=== PATIENT | male | born 1965 | race Caucasian/White ===

== ENCOUNTER 2017-11-10 10:22 | Day surgery (SDC) | payer OTHER ==
[~2017-11-10 10:22] MED LIST: Buffered Lidocaine 0.9% SYRIN* 5 ML/SYR SYRINGE INTRADERM ONE; Bupivacaine 0.25% SDV* 30 ML ONE; Cisatracurium* 2 MG/ML MDV 5 ML ONE; Dexamethasone IV* 4 MG/ML 1 ML (4 MG) ONE; Famotidine IV* 10 MG/ML 2 ML (20 mg) IV ONE; KETAMINE HCL* 50 MG/ML 10 ML VIAL ONE; Ketorolac INJ* 30 MG/ML 1 ML VIAL ONE; Lidocaine 2% PF * 5 ML VIAL ONE; Metoclopramide TAB* 10 MG PO ONE; Midazolam* 1 MG/ML 10 ML VIAL (10 MG) ONE; Ondansetron INJ* 2 MG/ML VIAL ONE; Propofol* 10 MG/ML 20 ML BTL IV PUSH ONE; fentaNYL* 50 MCG/ML 2 ML VIAL (100 MCG VIAL) ONE
[2017-11-10] MEDS ORDERED: Famotidine IV* 10 MG/ML 2 ML (20 mg) ONE (10:28)
[2017-11-10] MEDS ORDERED: Metoclopramide TAB* 10 MG ONE (10:28)
[2017-11-10] MEDS ORDERED: ceFAZolin 2 GM PREMIX (*) 2 GM/50 ML BAG IVPB ONE (10:28)
[2017-11-10] MEDS ORDERED: Buffered Lidocaine 0.9% SYRIN* 5 ML/SYR SYRINGE ONE (10:28)
[2017-11-10] MEDS ORDERED: Bupivacaine 0.25% SDV* 30 ML ONE (10:40)
[2017-11-10] MEDS ORDERED: fentaNYL* 50 MCG/ML 2 ML VIAL (100 MCG VIAL) IV PRN (11:38)
[2017-11-10] MEDS ORDERED: oxyCODONE/Acetamin 5/325 MG* TAB PO PRN ×2 (11:38→12:18)
[2017-11-10] MEDS ORDERED: Naloxone* 0.4 MG/ML 1 ML VIAL IV PRN (11:38)
[2017-11-10] MEDS ORDERED: Ondansetron INJ* 2 MG/ML VIAL IV PRN (11:38)
[2017-11-10] MEDS ORDERED: HYDROmorphone INJ* 1 MG/ML CARPUJECT SYRINGE ONE (12:00)
[2017-11-10 13:08] VITALS: BP 139/80
--- NOTE | 2017-11-25 03:18 | OP ---
CC: Dr. Edwar Pope * DATE OF OPERATION: 11/10/17 - SDS DATE OF : 65 SURGEON: Brooks Castro MD PROGRAMMER OPERATOR NUMERICAL CONTROL: TRANG Roman ANESTHESIA: General anesthesia. PRE-OP DIAGNOSIS: Left inguinal hernia. POST-OP DIAGNOSIS: Left inguinal hernia. OPERATIVE PROCEDURE: Laparoscopic left inguinal hernia repair with mesh. ESTIMATED BLOOD LOSS: Minimal blood loss. SPECIMENS: None. FLUIDS: 1000 cc of lactated Ringer's given as fluid. DRAINS: None. DESCRIPTION OF PROCEDURE: The patient was identified in the preoperative area, he was marked and consent was signed. He was taken back to the operating room and placed on the operating table in the supine position. Preoperative antibiotics were given. Sequential devices were placed on bilateral lower extremities. General anesthesia was induced and the patient's abdomen was prepped and draped in a standard surgical fashion. Time-out was performed. Infraumbilical incision was made. This was deepened down overlying the rectus muscle. The fascia was incised and the rectus pillar was retracted laterally and entry into the preperitoneal plane was made. Blunt dissection was carried out. We then placed a 12-mm trocar into the site and allowed the preperitoneal plane to insufflate to a pressure of 12 mmHg. Scope was placed and additional 5-mm trocars were placed in the lower midline. We cleared off loose areolar tissue in this to make it a working space, we cleared off the pubic symphysis as well as Lon's ligament on both left and right side. A direct hernia was identified. This was bluntly dissected free. We then identified epigastric vessels. These were maintained anteriorly and cleared off Bogros' space laterally. The spermatic structures were then skeletonized. There was no direct sac. We then placed a Bard 3D mesh large size into the preperitoneal space, then allowed it to unfurl, tacked it to Lon's ligament as well as laterally and to the rectus muscle to cover the full myopectineal orifice. The preperitoneal space was then allowed to collapse. Trocar was removed under direct vision and I closed the fascia at the umbilical site with 0 Vicryl suture in a figure-of-8 fashion. Wound was then irrigated and all 3 skin incisions were reapproximated with 4-0 Monocryl subcuticular sutures. Steri-Strips and sterile dressings were applied. The patient tolerated the procedure well, was woken up from the OR, and transferred to the PACU in stable condition. [id number]/[facility] #: [id number] MTDD
== END 2017-11-10 13:22 | disposition home or self-care (01) ==
LOC: OR 10:22
PROVIDERS: ATTEND Surgery
DX: K40.90 Unilateral inguinal hernia, without obstruction or gangrene, not specified as recurrent (principal); G47.33 Obstructive sleep apnea (adult) (pediatric); E66.9 Obesity, unspecified
CPT/HCPCS: A9270-GY; C1776; C1781; J0690; J1100; J1170; J1885; J2250; J2405; J2704; J3010

== ENCOUNTER 2021-12-19 09:23 | Observation (INO) ==
[~2021-12-19 09:23] MED LIST changes: -Buffered Lidocaine 0.9% SYRIN* 5 ML/SYR SYRINGE INTRADERM ONE; +Buffered Lidocaine 1% SYRIN 1 ml INTRADERM ONE; -Bupivacaine 0.25% SDV* 30 ML ONE; -Cisatracurium* 2 MG/ML MDV 5 ML ONE; -Dexamethasone IV* 4 MG/ML 1 ML (4 MG) ONE; +Famotidine IV 10 MG/ML 2 ml VIAL (20 mg) IV ONE; -Famotidine IV* 10 MG/ML 2 ML (20 mg) IV ONE; -KETAMINE HCL* 50 MG/ML 10 ML VIAL ONE; -Ketorolac INJ* 30 MG/ML 1 ML VIAL ONE; +Lactated Ringers 1000 ml BAG 1,000 ML IV SCH; -Lidocaine 2% PF * 5 ML VIAL ONE; -Metoclopramide TAB* 10 MG PO ONE; +Midazolam 2 mg/2 ml VIAL 1 mg/ml 2 ml VIAL (2 mg) ONE; -Midazolam* 1 MG/ML 10 ML VIAL (10 MG) ONE; -Ondansetron INJ* 2 MG/ML VIAL ONE; +Phenylephrine IV 10 MG/ML 1 ml VIAL ONE; -Propofol* 10 MG/ML 20 ML BTL IV PUSH ONE; -fentaNYL* 50 MCG/ML 2 ML VIAL (100 MCG VIAL) ONE
[2021-12-19] MEDS ORDERED: Famotidine IV 10 MG/ML 2 ml VIAL (20 mg) ONE (09:43)
[2021-12-19] MEDS ORDERED: ceFAZolin 2 GM in NS PREMIX 2 GM/100 ML BAG IVPB ONE (09:43)
[2021-12-19] MEDS ORDERED: Rocuronium 50 mg VIAL 10 mg/ml 5 ml VIAL (50 mg) ONE (10:13)
[2021-12-19] MEDS ORDERED: Midazolam 2 mg/2 ml VIAL 1 mg/ml 2 ml VIAL (2 mg) ONE (11:13)
[2021-12-19] MEDS ORDERED: Lidocaine 2% PF 5 ML VIAL ONE ×2 (11:14→12:31)
[2021-12-19] MEDS ORDERED: fentaNYL 100 mcg/2 ml 50 MCG/ML VIAL ONE (11:14)
[2021-12-19] MEDS ORDERED: ROPIVACAINE 5 MG/ML 30 ML BTL (0.5%) ONE (11:14)
[2021-12-19] MEDS ORDERED: diPHENhydraMINE 25 mg TAB PO PRN (12:09)
[2021-12-19] MEDS ORDERED: Lactulose 30 ml UDC PO PRN (12:09)
[2021-12-19] MEDS ORDERED: Magnesium Hydroxide LIQ 30 ML UDC PO PRN (12:09)
[2021-12-19] MEDS ORDERED: Ondansetron 4 mg VIAL 2 MG/ML 2 ml VIAL IV PRN ×2 (12:09→12:46)
[2021-12-19] MEDS ORDERED: Ondansetron ODT 4 mg TAB 4 MG TAB PO PRN (12:09)
[2021-12-19] MEDS ORDERED: diPHENhydraMINE IV 50 MG/ML 1 ml VIAL (BENADRYL) IV PRN (12:09)
[2021-12-19] MEDS ORDERED: Ropivacaine 5 MG/ML 20 ML VIAL 0.5% (100 MG) ONE (12:13)
[2021-12-19] MEDS ORDERED: Naloxone 0.4 mg VIAL 0.4 mg/ml 1 ml VIAL IV PRN (12:46)
[2021-12-19] MEDS ORDERED: fentaNYL 100 mcg/2 ml 50 MCG/ML VIAL IV PRN (12:46)
[2021-12-19] MEDS ORDERED: Ondansetron 4 mg VIAL 2 MG/ML 2 ml VIAL ONE (12:56)
[2021-12-19] MEDS ORDERED: Dexamethasone IV 4 MG/ML VIAL 1 ml VIAL ONE (12:56)
[2021-12-19] MEDS ORDERED: Lactated Ringers 1000 ml BAG 1,000 ML IV SCH (13:00)
[2021-12-19] MEDS ORDERED: Acetaminophen IV 1 GM/100ML 100 ML IV ONE (13:59)
[2021-12-19] MEDS ORDERED: Propofol 10 MG/ML 20 ML BTL ONE (15:02)
[2021-12-19] MEDS ORDERED: Dextran 70/Hypromellose Tears Eye Drops 15 ml BTL (for Artificials Tears) BOTH EYES PRN (18:49)
[2021-12-19] MEDS: ceFAZolin 1 GM ADVAN 1 GM in NS 0.9% 50 ML 50 ML IVPB SCH (20:31)
[2021-12-19] MEDS: Magnesium Hydroxide LIQ 30 ML UDC PO SCH (20:32)
[2021-12-20] MEDS: ceFAZolin 1 GM ADVAN 1 GM in NS 0.9% 50 ML 50 ML IVPB SCH ×2 (05:23→11:48)
[2021-12-20 06:12] LABS: Hematocrit 38 % (42-52); Hemoglobin 13.2 g/dL (14.0-18.0); Mean Platelet Volume 6.8 fL (7.4-10.4); Platelet Count 257 10^3/uL (150-450)
[2021-12-20 06:26] LABS: Calcium 8.7 mg/dL (8.6-10.3); Potassium 4.5 mmol/L (3.5-5.0); eGFR CKD-EPI 102.7 (>60)
[2021-12-20] MEDS ORDERED: Vitamin THERAPEUTIC TAB PO SCH (09:00)
[2021-12-20] MEDS: Magnesium Hydroxide LIQ 30 ML UDC PO SCH (09:10)
[2021-12-20 11:00] VITALS: BP 115/63
== END 2021-12-20 12:50 | disposition home or self-care (01) ==
LOC: SDS 09:23 → SSU 09:23 → EDSTATUS 15:15
PROVIDERS: ADMIT Orthopaedic Surgery Adult Reconstructive Orthopaedic Surgery; ATTEND Orthopaedic Surgery Adult Reconstructive Orthopaedic Surgery